=== PATIENT | male | born 1950 | race Two or more races ===

== ENCOUNTER 2017-06-01 14:54 | Inpatient (IN) | payer MEDICARE, OTHER ==
[~2017-06-01] VITALS: Ht 175.3 cm; Wt 74.8 kg
[2017-06-01 14:57] VITALS: BP 123/84
[2017-06-01] MEDS ORDERED: Sodium Chloride 500ML 500 ML IV ONE (15:02)
--- NOTE | 2017-06-01 15:14 | Emergency Room Report ---
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 Unknown regarding complaints of chest pain Unknown regarding rash Unknown regarding recent fever Allergies: Coded Allergies: EGG (Verified Allergy, Unknown, 06/01/17) SOYBEAN (Verified Allergy, Unknown, 06/01/17) Shrimp (Verified Allergy, Unknown, 06/01/17) Patient History Limited by: medical condition Past Medical History: see triage record Pertinent Family History: unable to obtain Reviewed Nursing Documentation: PMH: Agreed; PSxH: Agreed Nursing Documentation-PMH Past Medical History: No History, Except For Hx Hypertension: Yes History Of Psychiatric Problem: Yes - alzheimers Hx Cerebrovascular Accident: Yes Review of Systems All Other Systems: limited - Other than the ones mentioned in the history of present illness all others are reviewed however they do stay limited due to the patient's mental status Physical Exam Vital Signs Date Time Temp Pulse Resp B/P (MAP) Pulse Ox O2 Delivery O2 Flow Rate FiO2 06/01/17 14:47 98.8 102 24 121/82 93 Nasal Cannula 2.0 98.8 Sp02 EP Interpretation: reviewed, normal General Appearance: mild distress - Appears uncomfortable Head: normocephalic, atraumatic Eyes: bilateral eye PERRL, bilateral eye EOMI ENT: dry mucus membranes Neck: supple Respiratory: lungs clear, normal breath sounds Cardiovascular #1: no edema, no JVD, tachycardia Gastrointestinal: non tender, soft Genitourinary: no CVA tenderness Musculoskeletal: other - Patient has left-sided deficit Neurologic: responsive - To verbal stimuli however not verbal Skin: normal color, no rash Lymphatic: no adenopathy Medical Decision Making Diagnostic Impression: Primary Impression: Nausea, vomiting, and diarrhea Additional Impression: Dehydration ER Course Patient is complex with multiple differentials considered Including extensive blood work and acute intervention Patient remains nauseated Have further medication provided Blood work at this time is appropriate and patient requires further inpatient care Labs Test 06/01/17 15:17 06/01/17 16:20 06/02/17 05:20 White Blood Count 12.0 K/UL (4.8-10.8) 12.9 K/UL (4.8-10.8) Red Blood Count 4.94 M/UL (4.70-6.10) 4.57 M/UL (4.70-6.10) Hemoglobin 14.4 G/DL (14.2-18.0) 13.4 G/DL (14.2-18.0) Hematocrit 42.2 % (42.0-52.0) 39.4 % (42.0-52.0) Mean Corpuscular Volume 85 FL (80-99) 86 FL (80-99) Mean Corpuscular Hemoglobin 29.2 PG (27.0-31.0) 29.3 PG (27.0-31.0) Mean Corpuscular Hemoglobin Concent 34.2 G/DL (32.0-36.0) 34.1 G/DL (32.0-36.0) Red Cell Distribution Width 13.3 % (11.6-14.8) 13.5 % (11.6-14.8) Platelet Count 143 K/UL (150-450) 131 K/UL (150-450) Mean Platelet Volume 8.8 FL (6.5-10.1) 9.3 FL (6.5-10.1) Neutrophils (%) (Auto) % (45.0-75.0) 78.6 % (45.0-75.0) Lymphocytes (%) (Auto) % (20.0-45.0) 14.4 % (20.0-45.0) Monocytes (%) (Auto) % (1.0-10.0) 5.6 % (1.0-10.0) Eosinophils (%) (Auto) % (0.0-3.0) 1.1 % (0.0-3.0) Basophils (%) (Auto) % (0.0-2.0) 0.4 % (0.0-2.0) Differential Total Cells Counted 100 Neutrophils % (Manual) 83 % (45-75) Lymphocytes % (Manual) 9 % (20-45) Monocytes % (Manual) 5 % (1-10) Eosinophils % (Manual) 0 % (0-3) Basophils % (Manual) 0 % (0-2) Band Neutrophils 3 % (0-8) Platelet Estimate Decreased Platelet Morphology Normal Red Blood Cell Morphology Normal Sodium Level 141 MMOL/L (136-145) 143 MMOL/L (136-145) Potassium Level 3.4 MMOL/L (3.5-5.1) 3.5 MMOL/L (3.5-5.1) Chloride Level 107 MMOL/L (98-107) 106 MMOL/L (98-107) Carbon Dioxide Level 25 MMOL/L (21-32) 29 MMOL/L (21-32) Anion Gap 9 mmol/L (5-15) 8 mmol/L (5-15) Blood Urea Nitrogen 20 mg/dL (7-18) 21 mg/dL (7-18) Creatinine 1.1 MG/DL (0.55-1.30) 1.1 MG/DL (0.55-1.30) Estimat Glomerular Filtration Rate > 60 mL/min (>60) > 60 mL/min (>60) Glucose Level 110 MG/DL (74-106) 83 MG/DL (74-106) Calcium Level 9.1 MG/DL (8.5-10.1) 8.5 MG/DL (8.5-10.1) Total Bilirubin 1.1 MG/DL (0.2-1.0) 1.2 MG/DL (0.2-1.0) Direct Bilirubin 0.2 MG/DL (0.0-0.3) 0.3 MG/DL (0.0-0.3) Aspartate Amino Transf (AST/SGOT) 14 U/L (15-37) 11 U/L (15-37) Alanine Aminotransferase (ALT/SGPT) 23 U/L (12-78) 19 U/L (12-78) Alkaline Phosphatase 91 U/L (46-116) 77 U/L (46-116) Total Creatine Kinase 15 U/L (26-308) Creatine Kinase MB < 0.5 NG/ML (0.0-3.6) Creatine Kinase MB Relative Index 3.3 Troponin I 0.000 ng/mL (0.000-0.056) Total Protein 6.9 G/DL (6.4-8.2) 6.4 G/DL (6.4-8.2) Albumin 3.4 G/DL (3.4-5.0) 3.0 G/DL (3.4-5.0) Globulin 3.5 g/dL 3.4 g/dL Albumin/Globulin Ratio 1.0 (1.0-2.7) 0.9 (1.0-2.7) Triglycerides Level 133 MG/DL (30-150) Cholesterol Level 121 MG/DL (< 200) LDL Cholesterol 73 mg/dL (<100) HDL Cholesterol 30 MG/DL (40-60) Cholesterol/HDL Ratio 4.0 (3.3-4.4) Urine Color Yellow Urine Appearance Clear Urine pH 5 (4.5-8.0) Urine Specific [place] 1.015 (1.005-1.035) Urine Protein Negative (NEGATIVE) Urine Glucose (UA) Negative (NEGATIVE) Urine Ketones Negative (NEGATIVE) Urine Occult Blood Negative (NEGATIVE) Urine Nitrite Negative (NEGATIVE) Urine Bilirubin Negative (NEGATIVE) Urine Urobilinogen Normal MG/DL (0.0-1.0) Urine Leukocyte Esterase Negative (NEGATIVE) Activated Partial Thromboplast Time 34 SEC (23-33) Amylase Level 58 U/L (25-115) Lipase 80 U/L (73-393) Rhythm Strip Diag. Results EP Interpretation: yes Rate: 78 Rhythm: NSR, no PVC's, no ectopy Chest X-Ray Diagnostic Results Chest X-Ray Diagnostic Results : Chest X-Ray Ordered: Yes # of Views/Limited/Complete: 1 View Indication: Chest Pain EP Interpretation: Yes Interpretation: no consolidation, no effusion, no pneumothorax Impression: No acute disease Electronically Signed by: Garry Serrano DO Other X-Ray Diagnostic Results Other X-Ray Diagnostic Results : X-Ray ordered: KUB # of Views/Limited Vs Complete: 1 View Indication: Pain EP Interpretation: Yes Interpretation: no soft tissue swelling, nonspecific bowel gas, no sbo Impression: No acute disease Electronically Signed by: Garry Serrano DO Last Vital Signs Date Time Temp Pulse Resp B/P (MAP) Pulse Ox O2 Delivery O2 Flow Rate FiO2 06/01/17 14:47 98.8 102 24 121/82 93 Nasal Cannula 2.0 98.8 Status: improved Disposition: ADMITTED INPATIENT Condition: Serious Garry Serrano DO Jun 01, 2017 15:14
[2017-06-01] MEDS ORDERED: ACETAMINOPHEN325 M1 ORAL (15:19)
[2017-06-01] MEDS ORDERED: DOCUSATE SODIU100 MG ORAL (15:19)
[2017-06-01] MEDS ORDERED: ARICEPT10 MG ORAL (15:19)
[2017-06-01] MEDS ORDERED: MIRTAZAPINE15 MG ORAL (15:19)
[2017-06-01] MEDS ORDERED: TRAZODONE HCL150 MG ORAL (15:19)
[2017-06-01] MEDS ORDERED: LIPITOR10 MG ORAL (15:19)
[2017-06-01] MEDS ORDERED: LISINOPRIL20 MG ORAL (15:19)
[2017-06-01 15:59] LABS: HEMATOCRIT 42.2 % (42.0-52.0); HEMOGLOBIN 14.4 G/DL (14.2-18.0); MEAN CORPUSCULAR VOLUME 85 FL (80-99); PLATELET COUNT 143 K/UL (150-450); RED BLOOD COUNT 4.94 M/UL (4.70-6.10); RED CELL DISTRIBUTION WIDTH 13.3 % (11.6-14.8)
[2017-06-01 16:05] LABS: ANION GAP 9 mmol/L (5-15); BLOOD UREA NITROGEN 20 mg/dL (7-18); CALCIUM 9.1 MG/DL (8.5-10.1); CARBON DIOXIDE 25 MMOL/L (21-32); CHLORIDE 107 MMOL/L (98-107); CREATININE 1.1 MG/DL (0.55-1.30); POTASSIUM 3.4 MMOL/L (3.5-5.1); SODIUM 141 MMOL/L (136-145)
[2017-06-01 16:18] LABS: ALANINE AMINOTRANSFERASE 23 U/L (12-78); ALBUMIN 3.4 G/DL (3.4-5.0); ALKALINE PHOSPHATASE 91 U/L (46-116); ASPARTATE AMINO TRANSFERASE 14 U/L (15-37); BILIRUBIN,TOTAL 1.1 MG/DL (0.2-1.0); CHOLESTEROL 121 MG/DL (< 200); CKMB < 0.5 NG/ML (0.0-3.6); CREATINE KINASE 15 U/L (26-308); HDL CHOLESTEROL 30 MG/DL (40-60); TRIGLYCERIDES 133 MG/DL (30-150)
[2017-06-01 16:19] LABS: BILIRUBIN,DIRECT 0.2 MG/DL (0.0-0.3)
[2017-06-01 16:43] LABS: APPEARANCE,URINE CLEAR; BILIRUBIN, URINE NEGATIVE (NEGATIVE); COLOR,URINE YELLOW; GLUCOSE, URINE (UA) NEGATIVE (NEGATIVE); KETONES,URINE NEGATIVE (NEGATIVE); LEUKOCYTE ESTERASE ,URINE NEGATIVE (NEGATIVE); NITRITE,URINE NEGATIVE (NEGATIVE); PH,URINE 5 (4.5-8.0); PROTEIN,URINE NEGATIVE (NEGATIVE); UROBILINOGEN,URINE NORMAL MG/DL (0.0-1.0)
--- NOTE | 2017-06-01 16:47 | Diagnostic Imaging Report ---
Indication: Chest pain Technique: One view of the chest Comparison: none Findings: No acute infiltrates, effusions, or congestion. Tortuous calcified aorta. Normal heart size. Upper mediastinum unremarkable. Impression: No acute process.
--- NOTE | 2017-06-01 16:49 | Diagnostic Imaging Report ---
Indication: Abdominal pain Technique: Supine view of the abdomen Comparison: none Findings: Considerable stool is seen mildly distending the rectum, mild fecal impaction not excludable. Remainder of the bowel gas pattern is unremarkable. No unusual masses or calcifications Impression: Possible mild rectal fecal impaction. Otherwise no acute process
[2017-06-01 16:50] VITALS: BP 131/75
[2017-06-01] MEDS ORDERED: Mylanta II UD 30ml ORAL PRN (19:30)
[2017-06-01] MEDS ORDERED: LORazepam Inj 2mg/ml 1ml IV PRN (19:30)
[2017-06-01] MEDS ORDERED: Nitroglycerin Subl 0.4mg tab SL PRN (19:30)
[2017-06-01] MEDS ORDERED: Morphine Sulfate 4mg/ml Inj IVP PRN (19:30)
[2017-06-01] MEDS ORDERED: Promethazine/Codeine 5ml UD ORAL PRN (19:30)
[2017-06-01] MEDS ORDERED: Miralax 17gm pkt ORAL PRN (19:30)
[2017-06-01] MEDS ORDERED: Promethazine HCl 12.5 MG in NS 55 ML IV PRN (19:30)
[2017-06-01] MEDS ORDERED: Promethazine HCl 25 MG in D5W 55 ML IV PRN (19:30)
[2017-06-01 20:00] VITALS: BP 104/70
[2017-06-01] MEDS: TraZODone HCl 25 mg tablet ORAL SCH (20:25)
[2017-06-01] MEDS: D5 1/2NS 1,000 ML IV SCH (20:25)
[2017-06-01] MEDS: Heparin 5000 units/ml inj SUBQ SCH (21:00)
[2017-06-02] VITALS (7 sets, daily range): BP systolic 109–141; BP diastolic 69–90
--- NOTE | 2017-06-02 05:00 | Consultation ---
DATE OF CONSULTATION: 06/02/2017 HISTORY OF PRESENT ILLNESS: This is a 66-year-old male patient. He came into the hospital due to persistent nausea but this patient continues to have some confusion, disorganized thought process, and mood lability worsened by the stress of his medical illness that is why his attending physician has requested daily psychiatric consultation for this patient to be seen. He also has a history of altered mental status and pseudodementia, normally on Remeron, Aricept, and trazodone. Seen and assessed the patient at bedside. He has some confusion and disorganized thought process. His cognition has declined below his baseline. MEDICAL PROBLEMS: He has persistent nausea. He also has a history of hyperlipidemia and currently dehydration per chart, urinary tract infection, which is likely cause of his altered mental status. ALLERGIES: He has no known drug allergies. SOCIAL HISTORY: [facility] lives in [facility]. Financially supported by [employer] and Medicare. SUBSTANCE ABUSE HISTORY: Denies drug and alcohol use. PSYCHIATRIC HISTORY: Major depression with psychotic features, rule out pseudodementia. STRENGTHS: He is motivated to get better and he has a place to live. WEAKNESSES: He has minimal support system MENTAL STATUS EXAMINATION: Appearance is disheveled. Attitude irritable and agitated. Affect guarded and restricted. Intellect poor. Mood depressed, anxious. Motor activity, psychomotor agitation. Attention span is poor. Orientation x2. Speech is low volume and slurred. Thought process, disorganized and illogical. No signs of any suicidal or homicidal thoughts. He does have sone paranoia. Insight and logical and judgment is poor. Memory 2/3 recall, so poor short-term. Long-term is intact. DIAGNOSIS: Major depressive disorder with psychotic features, rule out pseudodementia. PLAN: I am going to treat this patient with Remeron 15 mg at bedtime, Aricept 5 mg at bedtime, Ativan 1 mg IV q.4 h. hours p.r.n. anxiety and agitation, trazodone 25 mg at bedtime. A 20 minutes supportive therapy provided. Chart reviewed and discussed staff. The patient seen and assessed in his room. I would like to thank, Dr. Jeremy Cuadra, for this interesting consultation. Tan Scott M.D. DR: Kayla JOB#: [id number] CC:
[2017-06-02 07:35] LABS: BASOPHILS % (AUTO) 0.4 % (0.0-2.0); EOSINOPHILS % (AUTO) 1.1 % (0.0-3.0); HEMATOCRIT 39.4 % (42.0-52.0); HEMOGLOBIN 13.4 G/DL (14.2-18.0); LYMPHOCYTES % (AUTO) 14.4 % (20.0-45.0); MEAN CORPUSCULAR VOLUME 86 FL (80-99); MONOCYTES % (AUTO) 5.6 % (1.0-10.0); NEUTROPHILS % (AUTO) 78.6 % (45.0-75.0); PLATELET COUNT 131 K/UL (150-450); RED BLOOD COUNT 4.57 M/UL (4.70-6.10); RED CELL DISTRIBUTION WIDTH 13.5 % (11.6-14.8); WHITE BLOOD COUNT 12.9 K/UL (4.8-10.8)
[2017-06-02 08:01] LABS: ALANINE AMINOTRANSFERASE 19 U/L (12-78); ALBUMIN/GLOBULIN RATIO 0.9 (1.0-2.7); ALKALINE PHOSPHATASE 77 U/L (46-116); AMYLASE 58 U/L (25-115); ANION GAP 8 mmol/L (5-15); ASPARTATE AMINO TRANSFERASE 11 U/L (15-37); BILIRUBIN,TOTAL 1.2 MG/DL (0.2-1.0); BLOOD UREA NITROGEN 21 mg/dL (7-18); CALCIUM 8.5 MG/DL (8.5-10.1); CARBON DIOXIDE 29 MMOL/L (21-32); CHLORIDE 106 MMOL/L (98-107); CREATININE 1.1 MG/DL (0.55-1.30); POTASSIUM 3.5 MMOL/L (3.5-5.1); SODIUM 143 MMOL/L (136-145)
[2017-06-02 08:02] LABS: BILIRUBIN,DIRECT 0.3 MG/DL (0.0-0.3)
[2017-06-02] MEDS: Lisinopril 20mg tab ORAL SCH (08:33)
[2017-06-02] MEDS: Pantoprazole Inj IV SCH (08:33)
[2017-06-02] MEDS: Heparin 5000 units/ml inj SUBQ SCH ×2 (08:34→21:00)
[2017-06-02] MEDS: D5 1/2NS 1,000 ML IV SCH ×2 (08:41→22:06)
[2017-06-02] MEDS ORDERED: D5 1/2NS 1000ml IV ONE (09:22)
--- NOTE | 2017-06-02 13:43 | Cardiology Report ---
APPROVED REPORT EKG Measurement Heart [id number] Sinus tachycardia Nonspecific T wave abnormality Abnormal ECG
--- NOTE | 2017-06-02 14:52 | Consultation ---
History of Present Illness General Date patient seen: Jun 02, 2017 Chief Complaint: Nausea, Vomiting, and Diarrhea Reason for Consultation: desaturation Present Illness HPI 66 year old male with hx of HTN, CVA, [facility] resident presents with several episodes of vomiting and diarrhea Patient himself is nonverbal history is obtained from paramedics along with [facility] report. Apparently he had an episode of desaturation as well. Pt looks chronically ill, slightly cachectic but comfortable. Allergies: Coded Allergies: EGG (Verified Allergy, Unknown, 06/01/17) SOYBEAN (Verified Allergy, Unknown, 06/01/17) Shrimp (Verified Allergy, Unknown, 06/01/17) Medication History Scheduled Atorvastatin Calcium* (Lipitor*), 10 MG ORAL BEDTIME, (Reported) Docusate Sodium* (Docusate Sodium*), 100 MG ORAL TWICE A DAY, (Reported) Donepezil Hcl* (Aricept*), 10 MG ORAL DAILY, (Reported) Lisinopril (Lisinopril*), 20 MG ORAL DAILY, (Reported) Mirtazapine* (Remeron*), 15 MG ORAL BEDTIME, (Reported) Trazodone* (Trazodone*), 25 MG ORAL BEDTIME, (Reported) Scheduled PRN Acetaminophen* (Acetaminophen 325MG Tablet*), 650 MG ORAL Q4H PRN for For Pain, (Reported) Patient History Healthcare decision maker Resuscitation status Advanced Directive on File Yes Past Medical/Surgical History Past Medical/Surgical History: (1) Cerebrovascular accident (CVA) (2) HTN (hypertension) (3) half-way resident Review of Systems All Other Systems: negative except mentioned in HPI Physical Exam General Appearance: cachetic Lines, tubes and drains: peripheral HEENT: normocephalic, atraumatic Neck: non-tender, normal alignment, supple Respiratory/Chest: chest wall non-tender, lungs clear Breasts: no masses Cardiovascular/Chest: normal peripheral pulses Abdomen: normal bowel sounds, non tender Genitourinary/Rectal: normal genital exam, normal rectal exam Extremities: normal range of motion, non-tender Skin Exam: normal pigmentation Neurologic: food vendor II-XII grossly normal Last 24 Hour Vital Signs Date Time Temp Pulse Resp B/P (MAP) Pulse Ox O2 Delivery O2 Flow Rate FiO2 06/02/17 12:00 97.2 59 20 122/69 90 97.2 06/02/17 08:33 118/69 06/02/17 08:00 97.0 95 17 118/69 95 Nasal Cannula 2.0 97.0 06/02/17 04:00 Nasal Cannula 2.0 06/02/17 04:00 97.3 63 14 128/77 97 97.3 06/02/17 00:00 98.0 77 15 109/72 93 98.0 06/02/17 00:00 Nasal Cannula 2.0 06/01/17 20:00 98.1 80 15 104/70 91 98.1 06/01/17 20:00 94 Nasal Cannula 2.0 06/01/17 18:06 98.5 100 22 127/80 94 Nasal Cannula 2.0 98.4 06/01/17 16:50 98.4 102 24 131/75 94 Nasal Cannula 2.0 98.4 06/01/17 14:57 98.0 101 25 123/84 93 Nasal Cannula 2.0 98.0 Intake and Output 06/01/17 06/02/17 19:00 07:00 Intake Total 500 ml 720 ml Output Total 100 ml Balance 400 ml 720 ml Intake IV Total 500 ml 720 ml Output Urine Total 100 ml # Voids 1 2 Laboratory Tests Test 06/01/17 15:17 06/01/17 16:20 06/02/17 05:20 White Blood Count 12.0 K/UL (4.8-10.8) H 12.9 K/UL (4.8-10.8) H Red Blood Count 4.94 M/UL (4.70-6.10) 4.57 M/UL (4.70-6.10) L Hemoglobin 14.4 G/DL (14.2-18.0) 13.4 G/DL (14.2-18.0) L Hematocrit 42.2 % (42.0-52.0) 39.4 % (42.0-52.0) L Mean Corpuscular Volume 85 FL (80-99) 86 FL (80-99) Mean Corpuscular Hemoglobin 29.2 PG (27.0-31.0) 29.3 PG (27.0-31.0) Mean Corpuscular Hemoglobin Concent 34.2 G/DL (32.0-36.0) 34.1 G/DL (32.0-36.0) Red Cell Distribution Width 13.3 % (11.6-14.8) 13.5 % (11.6-14.8) Platelet Count 143 K/UL (150-450) L 131 K/UL (150-450) L Mean Platelet Volume 8.8 FL (6.5-10.1) 9.3 FL (6.5-10.1) Neutrophils (%) (Auto) % (45.0-75.0) 78.6 % (45.0-75.0) H Lymphocytes (%) (Auto) % (20.0-45.0) 14.4 % (20.0-45.0) L Monocytes (%) (Auto) % (1.0-10.0) 5.6 % (1.0-10.0) Eosinophils (%) (Auto) % (0.0-3.0) 1.1 % (0.0-3.0) Basophils (%) (Auto) % (0.0-2.0) 0.4 % (0.0-2.0) Differential Total Cells Counted 100 Neutrophils % (Manual) 83 % (45-75) H Lymphocytes % (Manual) 9 % (20-45) L Monocytes % (Manual) 5 % (1-10) Eosinophils % (Manual) 0 % (0-3) Basophils % (Manual) 0 % (0-2) Band Neutrophils 3 % (0-8) Platelet Estimate Decreased L Platelet Morphology Normal Red Blood Cell Morphology Normal Sodium Level 141 MMOL/L (136-145) 143 MMOL/L (136-145) Potassium Level 3.4 MMOL/L (3.5-5.1) L 3.5 MMOL/L (3.5-5.1) Chloride Level 107 MMOL/L (98-107) 106 MMOL/L (98-107) Carbon Dioxide Level 25 MMOL/L (21-32) 29 MMOL/L (21-32) Anion Gap 9 mmol/L (5-15) 8 mmol/L (5-15) Blood Urea Nitrogen 20 mg/dL (7-18) H 21 mg/dL (7-18) H Creatinine 1.1 MG/DL (0.55-1.30) 1.1 MG/DL (0.55-1.30) Estimat Glomerular Filtration Rate > 60 mL/min (>60) > 60 mL/min (>60) Glucose Level 110 MG/DL (74-106) H 83 MG/DL (74-106) Calcium Level 9.1 MG/DL (8.5-10.1) 8.5 MG/DL (8.5-10.1) Total Bilirubin 1.1 MG/DL (0.2-1.0) H 1.2 MG/DL (0.2-1.0) H Direct Bilirubin 0.2 MG/DL (0.0-0.3) 0.3 MG/DL (0.0-0.3) Aspartate Amino Transf (AST/SGOT) 14 U/L (15-37) L 11 U/L (15-37) L Alanine Aminotransferase (ALT/SGPT) 23 U/L (12-78) 19 U/L (12-78) Alkaline Phosphatase 91 U/L (46-116) 77 U/L (46-116) Total Creatine Kinase 15 U/L (26-308) L Creatine Kinase MB < 0.5 NG/ML (0.0-3.6) Creatine Kinase MB Relative Index 3.3 Troponin I 0.000 ng/mL (0.000-0.056) Total Protein 6.9 G/DL (6.4-8.2) 6.4 G/DL (6.4-8.2) Albumin 3.4 G/DL (3.4-5.0) 3.0 G/DL (3.4-5.0) L Globulin 3.5 g/dL 3.4 g/dL Albumin/Globulin Ratio 1.0 (1.0-2.7) 0.9 (1.0-2.7) L Triglycerides Level 133 MG/DL (30-150) Cholesterol Level 121 MG/DL (< 200) LDL Cholesterol 73 mg/dL (<100) HDL Cholesterol 30 MG/DL (40-60) L Cholesterol/HDL Ratio 4.0 (3.3-4.4) Urine Color Yellow Urine Appearance Clear Urine pH 5 (4.5-8.0) Urine Specific [place] 1.015 (1.005-1.035) Urine Protein Negative (NEGATIVE) Urine Glucose (UA) Negative (NEGATIVE) Urine Ketones Negative (NEGATIVE) Urine Occult Blood Negative (NEGATIVE) Urine Nitrite Negative (NEGATIVE) Urine Bilirubin Negative (NEGATIVE) Urine Urobilinogen Normal MG/DL (0.0-1.0) Urine Leukocyte Esterase Negative (NEGATIVE) Activated Partial Thromboplast Time 34 SEC (23-33) H Amylase Level 58 U/L (25-115) Lipase 80 U/L (73-393) Height (Feet): 5 Height (Inches): 9.00 Weight (Pounds): 165 Medications Current Medications Medications (Trade) Dose Ordered Sig/Dandy Route PRN Reason Start Time Stop Time Status Last Admin Dose Admin Acetaminophen (Tylenol) 650 mg Q4H PRN ORAL fever 06/01/17 19:30 07/01/17 19:29 Al Hydroxide/Mg Hydroxide (Mylanta II) 30 ml Q6H PRN ORAL dyspepsia 06/01/17 19:30 07/01/17 19:29 Atorvastatin Calcium (Lipitor) 10 mg BEDTIME ORAL 06/01/17 21:00 07/01/17 20:59 06/01/17 20:25 Dextrose (Dextrose 50%) 25 ml STAT PRN IV BS 60-69mg/dl 06/01/17 20:15 07/01/17 20:14 Dextrose (Dextrose 50%) 50 ml STAT PRN IV BS less than 60mg/dl 06/01/17 19:30 07/01/17 19:29 Dextrose/Sodium Chloride 1,000 ml @ 75 mls/hr [id number] IV 06/01/17 19:26 07/01/17 19:25 06/02/17 08:41 Diphenhydramine HCl (Benadryl) 25 mg Q6H PRN ORAL Itching/Pruritis 06/01/17 19:30 07/01/17 19:29 Donepezil HCl (Aricept) 5 mg QHS ORAL 06/02/17 21:00 07/02/17 20:59 Heparin Sodium (Porcine) (Heparin 5000 units/ml) 5,000 units EVERY 12 HOURS SUBQ 06/01/17 21:00 07/01/17 20:59 Lisinopril (Prinivil) 20 mg DAILY ORAL 06/02/17 09:00 07/02/17 08:59 06/02/17 08:33 Lorazepam (Ativan 2mg/ml 1ml) 1 mg EVERY 4 HOURS PRN IV agitation 06/01/17 19:30 06/08/17 19:29 Mirtazapine (Remeron) 15 mg BEDTIME ORAL 06/02/17 21:00 07/02/17 20:59 Morphine Sulfate (Morphine Sulfate) 2 mg EVERY 4 HOURS PRN IVP severe Pain (Pain Scale 7-10) 06/01/17 19:30 06/08/17 19:29 Nitroglycerin (Ntg) 0.4 mg Q5M X 3 DOSES PRN SL Prn Chest Pain 06/01/17 19:30 07/01/17 19:29 Ondansetron HCl (Zofran) 4 mg Q6H PRN IVP Nausea & Vomiting 06/01/17 19:30 07/01/17 19:29 Pantoprazole (Protonix) 40 mg DAILY IV 06/02/17 09:00 07/02/17 08:59 06/02/17 08:33 Polyethylene Glycol (Miralax) 17 gm HSPRN PRN ORAL Constipation 06/01/17 19:30 07/01/17 19:29 Promethazine HCl 25 mg/Dextrose 56 ml @ 110 mls/hr Q6H PRN IV Refractory N/V 06/01/17 19:30 07/01/17 19:29 Promethazine HCl/ Codeine (Phenergan with Codeine) 5 ml Q4H PRN ORAL For Cough 06/01/17 19:30 07/01/17 19:29 Temazepam (Restoril) 15 mg HSPRN PRN ORAL Insomnia 06/01/17 19:30 06/08/17 19:29 Trazodone HCl (Desyrel) 25 mg BEDTIME ORAL 06/01/17 21:00 07/01/17 20:59 06/01/17 20:25 Assessment/Plan Problem List: (1) Hypoxemia ICD Codes: R09.02 - Hypoxemia SNOMED: 214417185 (2) At high risk for aspiration ICD Codes: Z91.89 - Other specified personal risk factors, not elsewhere classified SNOMED: 986691602 (3) Nausea, vomiting, and diarrhea ICD Codes: R11.2 - Nausea with vomiting, unspecified; R19.7 - Diarrhea, unspecified SNOMED: 0218717 (4) half-way resident ICD Codes: Z59.3 - Problems related to living in residential institution SNOMED: 653171734 (5) HTN (hypertension) ICD Codes: I10 - Essential (primary) hypertension SNOMED: 77557470 (6) Cerebrovascular accident (CVA) ICD Codes: I63.9 - Cerebral infarction, unspecified SNOMED: 508239438 Assessment/Plan npo IV fluids abdominal studies swallow evaluation check electrolytes dvt prophylaxis. Rosio Prince MD Jun 02, 2017 14:52
--- NOTE | 2017-06-02 16:52 | GI Initial Consult Note ---
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 Pt seen on floor, awake alert NAD with no active s/sx of N/V/D. Unable to obtain any history from patient, son at bedside. Labs reviewed shows mild leukocytosis, KUB shows possible fecal impaction. Unknown history of endoscopy / colonoscopy. Home Meds Reported Medications Acetaminophen* (ACETAMINOPHEN 325MG TABLET*) 325 Mg Tablet, 650 MG ORAL Q4H PRN for For Pain, TAB 06/01/17 Atorvastatin Calcium* (LIPITOR*) 10 Mg Tablet, 10 MG ORAL BEDTIME, TAB 06/01/17 Donepezil Hcl* (ARICEPT*) 10 Mg Tablet, 10 MG ORAL DAILY, TAB 06/01/17 Lisinopril (LISINOPRIL*) 20 Mg Tablet, 20 MG ORAL DAILY, TAB 06/01/17 Docusate Sodium* (DOCUSATE SODIUM*) 100 Mg Capsule, 100 MG ORAL TWICE A DAY, CAP 06/01/17 Mirtazapine* (REMERON*) 15 Mg Tablet, 15 MG ORAL BEDTIME, TAB 06/01/17 Trazodone* (TRAZODONE*) 150 Mg Tablet, 25 MG ORAL BEDTIME, TAB 06/01/17 Med list reviewed/reconciled: Yes Allergies: Coded Allergies: EGG (Verified Allergy, Unknown, 06/01/17) SOYBEAN (Verified Allergy, Unknown, 06/01/17) Shrimp (Verified Allergy, Unknown, 06/01/17) Patient History Limited by: medical condition History Provided By: Medical Record PMH Narrative Limited by: medical condition Past Medical History: see triage record Pertinent Family History: unable to obtain Reviewed Nursing Documentation: PMH: Agreed; PSxH: Agreed Nursing Documentation-PMH Past Medical History: No History, Except For Hx Hypertension: Yes History Of Psychiatric Problem: Yes - Alzheimer Hx Cerebrovascular Accident: Yes Social History: Denies: smoking, alcohol use, drug use, other Review of Systems All Other Systems: limited Physical Exam Vital Signs Date Time Temp Pulse Resp B/P (MAP) Pulse Ox O2 Delivery O2 Flow Rate FiO2 06/01/17 14:47 98.8 102 24 121/82 93 Nasal Cannula 2.0 98.8 Sp02 EP Interpretation: reviewed, normal Labs Laboratory Tests Test 06/02/17 05:20 White Blood Count 12.9 K/UL (4.8-10.8) H Red Blood Count 4.57 M/UL (4.70-6.10) L Hemoglobin 13.4 G/DL (14.2-18.0) L Hematocrit 39.4 % (42.0-52.0) L Mean Corpuscular Volume 86 FL (80-99) Mean Corpuscular Hemoglobin 29.3 PG (27.0-31.0) Mean Corpuscular Hemoglobin Concent 34.1 G/DL (32.0-36.0) Red Cell Distribution Width 13.5 % (11.6-14.8) Platelet Count 131 K/UL (150-450) L Mean Platelet Volume 9.3 FL (6.5-10.1) Neutrophils (%) (Auto) 78.6 % (45.0-75.0) H Lymphocytes (%) (Auto) 14.4 % (20.0-45.0) L Monocytes (%) (Auto) 5.6 % (1.0-10.0) Eosinophils (%) (Auto) 1.1 % (0.0-3.0) Basophils (%) (Auto) 0.4 % (0.0-2.0) Activated Partial Thromboplast Time 34 SEC (23-33) H Sodium Level 143 MMOL/L (136-145) Potassium Level 3.5 MMOL/L (3.5-5.1) Chloride Level 106 MMOL/L (98-107) Carbon Dioxide Level 29 MMOL/L (21-32) Anion Gap 8 mmol/L (5-15) Blood Urea Nitrogen 21 mg/dL (7-18) H Creatinine 1.1 MG/DL (0.55-1.30) Estimat Glomerular Filtration Rate > 60 mL/min (>60) Glucose Level 83 MG/DL (74-106) Calcium Level 8.5 MG/DL (8.5-10.1) Total Bilirubin 1.2 MG/DL (0.2-1.0) H Direct Bilirubin 0.3 MG/DL (0.0-0.3) Aspartate Amino Transf (AST/SGOT) 11 U/L (15-37) L Alanine Aminotransferase (ALT/SGPT) 19 U/L (12-78) Alkaline Phosphatase 77 U/L (46-116) Total Protein 6.4 G/DL (6.4-8.2) Albumin 3.0 G/DL (3.4-5.0) L Globulin 3.4 g/dL Albumin/Globulin Ratio 0.9 (1.0-2.7) L Amylase Level 58 U/L (25-115) Lipase 80 U/L (73-393) General Appearance: well appearing, no apparent distress, alert Head: normocephalic EENT: PERRL/EOMI, normal ENT inspection Neck: supple Respiratory: normal breath sounds, no respiratory distress Cardiovascular: normal rate Gastrointestinal: normal inspection, non tender, soft, normal bowel sounds, non -distended Rectal: deferred Genitourinary: deferred Musculoskeletal: normal inspection, back normal Neurologic: alert, responsive Skin: normal inspection, normal color, no rash, warm/dry, palpation normal, well hydrated Lymphatic: normal inspection, no adenopathy Current Medications Current Medications Medications (Trade) Dose Ordered Sig/Dandy Route PRN Reason Start Time Stop Time Status Last Admin Dose Admin Acetaminophen (Tylenol) 650 mg Q4H PRN ORAL fever 06/01/17 19:30 07/01/17 19:29 Al Hydroxide/Mg Hydroxide (Mylanta II) 30 ml Q6H PRN ORAL dyspepsia 06/01/17 19:30 07/01/17 19:29 Atorvastatin Calcium (Lipitor) 10 mg BEDTIME ORAL 06/01/17 21:00 07/01/17 20:59 06/01/17 20:25 Dextrose (Dextrose 50%) 25 ml STAT PRN IV BS 60-69mg/dl 06/01/17 20:15 07/01/17 20:14 Dextrose (Dextrose 50%) 50 ml STAT PRN IV BS less than 60mg/dl 06/01/17 19:30 07/01/17 19:29 Dextrose/Sodium Chloride 1,000 ml @ 75 mls/hr [id number] IV 06/01/17 19:26 07/01/17 19:25 06/02/17 08:41 Diphenhydramine HCl (Benadryl) 25 mg Q6H PRN ORAL Itching/Pruritis 06/01/17 19:30 07/01/17 19:29 Donepezil HCl (Aricept) 5 mg QHS ORAL 06/02/17 21:00 07/02/17 20:59 Heparin Sodium (Porcine) (Heparin 5000 units/ml) 5,000 units EVERY 12 HOURS SUBQ 06/01/17 21:00 07/01/17 20:59 Lisinopril (Prinivil) 20 mg DAILY ORAL 06/02/17 09:00 07/02/17 08:59 06/02/17 08:33 Lorazepam (Ativan 2mg/ml 1ml) 1 mg EVERY 4 HOURS PRN IV agitation 06/01/17 19:30 06/08/17 19:29 06/02/17 14:50 Mirtazapine (Remeron) 15 mg BEDTIME ORAL 06/02/17 21:00 07/02/17 20:59 Morphine Sulfate (Morphine Sulfate) 2 mg EVERY 4 HOURS PRN IVP severe Pain (Pain Scale 7-10) 06/01/17 19:30 06/08/17 19:29 Nitroglycerin (Ntg) 0.4 mg Q5M X 3 DOSES PRN SL Prn Chest Pain 06/01/17 19:30 07/01/17 19:29 Ondansetron HCl (Zofran) 4 mg Q6H PRN IVP Nausea & Vomiting 06/01/17 19:30 07/01/17 19:29 Pantoprazole (Protonix) 40 mg DAILY IV 06/02/17 09:00 07/02/17 08:59 06/02/17 08:33 Polyethylene Glycol (Miralax) 17 gm HSPRN PRN ORAL Constipation 06/01/17 19:30 07/01/17 19:29 Promethazine HCl 25 mg/Dextrose 56 ml @ 110 mls/hr Q6H PRN IV Refractory N/V 06/01/17 19:30 07/01/17 19:29 Promethazine HCl/ Codeine (Phenergan with Codeine) 5 ml Q4H PRN ORAL For Cough 06/01/17 19:30 07/01/17 19:29 Temazepam (Restoril) 15 mg HSPRN PRN ORAL Insomnia 06/01/17 19:30 06/08/17 19:29 Trazodone HCl (Desyrel) 25 mg BEDTIME ORAL 06/01/17 21:00 07/01/17 20:59 06/01/17 20:25 GI: Plan Problems: (1) Nausea, vomiting, and diarrhea (2) At high risk for aspiration (3) Fecal impaction in rectum (4) Malnutrition (5) Dysphagia as late effect of cerebrovascular accident (CVA) Plan KUB reviewed >> possible fecal impaction fleets oil PO & enema x 1, will perform disimpaction if not successful bowel regime >> colace + miralax ST evaluation given history of CVA strict aspiration precautions ok to adv diet ppi zofran prn, reglan for persistent vomiting prn transfusions electrolyte correction fu labs Discussed with Dr. Summers. Thank you for this patient referral, we will follow. Geovanna Guzman N.P. Jun 02, 2017 16:52
[2017-06-02] MEDS ORDERED: Fleet's Mineral Oil Enema RECTAL ONE (17:00)
--- NOTE | 2017-06-02 17:00 | History and Physical Report ---
DATE OF ADMISSION: 06/01/2017 TIME SEEN: 2 p.m. CONSULTANTS: 1. Trevor Summers M.D. 2. Rosio Prince M.D. 3. Tan Scott M.D. CHIEF COMPLAINT: Persistent nausea and vomiting. BRIEF HISTORY: This is a 66-year-old male from [facility] presented with the above-mentioned diagnoses for two days and the patient came in and diagnosed with the above, slight hypoxic and went to medical floor for further treatment. Currently, calm in bed, slight nausea and vomiting, no complaint otherwise, not responding to questions. REVIEW OF SYSTEMS: Unavailable. PAST MEDICAL HISTORY: Include hypertension and possible encephalopathy. PAST SURGICAL HISTORY: Unknown MEDICATIONS: Include Remeron, Aricept, Prinivil, Protonix, Lipitor, trazodone, heparin, dextrose, Tylenol, morphine, Zofran, Restoril, Benadryl, nitroglycerin, lorazepam, promethazine. ALLERGIES: Denies. SOCIAL HISTORY: Per patient, positive smoking. No alcohol. No intravenous drug abuse. FAMILY HISTORY: Noncontributory. PHYSICAL EXAMINATION: GENERAL: Calm in bed, oriented x1, in no acute distress. VITAL SIGNS: Temperature is 97, pulse 95, respiratory rate 17, blood pressure 118/69. CARDIOVASCULAR: No murmur. LUNGS: Distant and clear. ABDOMEN: Bowel sounds positive. Distended. Soft. No guarding. No rigidity. No rebound. EXTREMITIES: No cyanosis, clubbing, or edema. NEUROLOGIC: The patient moves all extremities. Does not want to follow commands. LABORATORY AND DIAGNOSTIC DATA: White count 12.9, hemoglobin and hematocrit 13/39, platelets 131. BMP show BUN 21, albumin 3.0, otherwise BMP is normal. PTT is 34. Urinalysis is negative. ASSESSMENT: 1. Nausea and vomiting. 2. . 3. Leukocytosis. 4. Hypoxic. 5. Hypercholesterol. PLAN: 1. Continue premeds. 2. OT/PT. 3. Dietary followup. 4. O2 and pulmonary treatment as needed. 5. Blood pressure control. 6. Pain control. 7. Zofran as needed. 8. Dietary followup. 9. Dr. Summers, Dr. Prince, Dr. Scott to consult. 10. CBC and BMP in the morning. Jeremy Cuadra D.O. DR: Maximo JOB#: [id number] CC:
[2017-06-02] MEDS ORDERED: Fleet's Mineral Oil Enema RECTAL SCH (17:15)
[2017-06-02] MEDS ORDERED: LORazepam 1mg tab ORAL PRN (17:15)
[2017-06-02] MEDS ORDERED: Mineral Oil 30ml ud ORAL SCH (20:00)
[2017-06-02] MEDS: Donepezil 5mg Tab ORAL SCH (21:01)
[2017-06-02] MEDS: Miralax 17gm pkt ORAL SCH (21:01)
[2017-06-02] MEDS: TraZODone HCl 25 mg tablet ORAL SCH (21:02)
[2017-06-03 04:00] VITALS: BP 156/66
[2017-06-03 08:00] VITALS: BP 123/78
[2017-06-03] MEDS: Pantoprazole Inj IV SCH (09:39)
[2017-06-03] MEDS: Heparin 5000 units/ml inj SUBQ SCH ×2 (09:40→21:00)
[2017-06-03] MEDS: Lisinopril 20mg tab ORAL SCH (09:43)
[2017-06-03] MEDS: D5 1/2NS 1,000 ML IV SCH (11:37)
[2017-06-03 12:00] VITALS: BP 104/54
--- NOTE | 2017-06-03 13:00 | General Progress Note ---
Assessment/Plan Problem List: (1) Nausea, vomiting, and diarrhea ICD Codes: R11.2 - Nausea with vomiting, unspecified; R19.7 - Diarrhea, unspecified SNOMED: 7955785 (2) HTN (hypertension) ICD Codes: I10 - Essential (primary) hypertension SNOMED: 94555571 (3) Hypoxemia ICD Codes: R09.02 - Hypoxemia SNOMED: 256666468 Status: unchanged Assessment/Plan o2 pulm tx ot pt diet abx prn cbc bmp am gi f/u Subjective Constitutional: Reports: weakness Gastrointestinal/Abdominal: Reports: nausea Allergies: Coded Allergies: EGG (Verified Allergy, Unknown, 06/01/17) SOYBEAN (Verified Allergy, Unknown, 06/01/17) Shrimp (Verified Allergy, Unknown, 06/01/17) All Systems: reviewed and negative except above Subjective sleepy in bed Objective Last 24 Hour Vital Signs Date Time Temp Pulse Resp B/P (MAP) Pulse Ox O2 Delivery O2 Flow Rate FiO2 06/03/17 12:00 97.7 53 16 104/54 96 97.7 06/03/17 09:43 123/78 06/03/17 08:31 60 06/03/17 08:00 96.8 51 20 123/78 97 96.8 06/03/17 04:00 97.9 79 18 156/66 96 97.9 06/02/17 23:56 97.6 69 18 141/90 95 97.6 06/02/17 20:00 97.2 64 18 141/86 92 97.2 06/02/17 16:00 98.2 65 18 136/74 96 98.2 Intake and Output 06/02/17 06/03/17 19:00 07:00 Intake Total 915 ml 250 ml Balance 915 ml 250 ml Intake Oral 240 ml 250 ml IV Total 675 ml # Voids 2 4 # Bowel Movements 2 Height (Feet): 5 Height (Inches): 9.00 Weight (Pounds): 165 General Appearance: lethargic EENT: normal ENT inspection Neck: normal alignment Cardiovascular: normal peripheral pulses, normal rate, regular rhythm Respiratory/Chest: chest wall non-tender, lungs clear, normal breath sounds Abdomen: normal bowel sounds, non tender, soft Extremities: normal inspection Edema: no edema noted Arm (L), no edema noted Arm (R), no edema noted Leg (L), no edema noted Leg (R), no edema noted Pedal (L), no edema noted Pedal (R), no edema noted Generalized Neurologic: motor weakness Skin: normal pigmentation, warm/dry DYLAN HOROWITZ Jun 03, 2017 13:00
--- NOTE | 2017-06-03 13:58 | Diagnostic Imaging Report ---
Indication: Abdominal pain, elevated LFTs Technique: US ABD Complete Comparison: None Findings: Pancreas is not visualized due to overlying bowel gas. Portions of the liver are poorly evaluated due to overlying bowel gas and body habitus. Questionable gallbladder sludge versus artifact. No gallbladder wall thickening or pericholecystic fluid seen. Sonographic Sanches sign was not documented. Hepatic contour appears smooth. Images demonstrate normal parenchymal thickness and echogenicity. A simple appearing cyst is noted at the lower pole the left kidney. No evidence of hydronephrosis bilaterally. Spleen is enlarged. No ascites. IMPRESSION: Exam due to overlying bowel gas, body habitus and (per computer engineering technologist) lack of cooperation with exam positioning. The pancreas, portions of the aorta and liver are not visualized. Within these limitations: * Apparent layering echogenic material in the gallbladder likely artifact. Gallbladder sludge not entirely excluded. No gallbladder wall thickening, abnormal gallbladder distention or pericholecystic fluid seen. Sonographic Sanches sign was not documented. Correlate clinically. * Suboptimal evaluation of the common bile duct. Likely within normal limits however some images suggest dilatation of the common bile duct to 1 cm. * Borderline hepatosplenomegaly. * Simple appearing left renal cyst. Given above limitations of ultrasound, more sensitive evaluation can be obtained with either contrast-enhanced CT or MRI of the abdomen.
--- NOTE | 2017-06-03 14:29 | GI Progress Note ---
Assessment/Plan Problems: (1) Cerebrovascular accident (CVA) ICD Codes: I63.9 - Cerebral infarction, unspecified SNOMED: 754138661 (2) At high risk for aspiration ICD Codes: Z91.89 - Other specified personal risk factors, not elsewhere classified SNOMED: 257764436 (3) Fecal impaction in rectum ICD Codes: K56.41 - Fecal impaction SNOMED: 47745233 (4) Malnutrition ICD Codes: E46 - Unspecified protein-calorie malnutrition SNOMED: 63320099 (5) Dysphagia as late effect of cerebrovascular accident (CVA) ICD Codes: I69.391 - Dysphagia following cerebral infarction SNOMED: 688329089 (6) Dehydration ICD Codes: E86.0 - Dehydration SNOMED: 00287815 (7) Nausea, vomiting, and diarrhea ICD Codes: R11.2 - Nausea with vomiting, unspecified; R19.7 - Diarrhea, unspecified SNOMED: 4190967 Status: stable Status Narrative Discussed with Dr. Summers. Assessment/Plan KUB reviewed >> possible fecal impaction >> had big BM yesterday bowel regime >> colace + miralax ST evaluation given history of CVA strict aspiration precautions ok to adv diet ppi zofran prn, reglan for persistent vomiting prn transfusions electrolyte correction fu labs Subjective Gastrointestinal/Abdominal: Reports: abdominal pain - resolved Objective Last 24 Hour Vital Signs Date Time Temp Pulse Resp B/P (MAP) Pulse Ox O2 Delivery O2 Flow Rate FiO2 06/03/17 12:00 97.7 53 16 104/54 96 97.7 06/03/17 09:43 123/78 06/03/17 08:31 60 06/03/17 08:00 96.8 51 20 123/78 97 96.8 06/03/17 04:00 97.9 79 18 156/66 96 97.9 06/02/17 23:56 97.6 69 18 141/90 95 97.6 06/02/17 20:00 97.2 64 18 141/86 92 97.2 06/02/17 16:00 98.2 65 18 136/74 96 98.2 Intake and Output 06/02/17 06/03/17 19:00 07:00 Intake Total 915 ml 250 ml Balance 915 ml 250 ml Intake Oral 240 ml 250 ml IV Total 675 ml # Voids 2 4 # Bowel Movements 2 Height (Feet): 5 Height (Inches): 9.00 Weight (Pounds): 165 General Appearance: no apparent distress, alert Cardiovascular: normal rate Respiratory/Chest: normal breath sounds, no respiratory distress Abdominal Exam: normal bowel sounds, non tender, soft Extremities: normal range of motion, non-tender Objective Had massive bowel movement last night Geovanna Guzman N.P. Jun 03, 2017 14:29
--- NOTE | 2017-06-03 14:56 | Pulmonology Progress Note ---
Assessment/Plan Problems: (1) Hypoxemia (2) At high risk for aspiration (3) Nausea, vomiting, and diarrhea (4) assisted resident (5) HTN (hypertension) (6) Cerebrovascular accident (CVA) Assessment/Plan aspiration precaution swallow study reviewed symptomatic treatment titrate fio2 to sat of 92% respiratory treatment dvt prophylaxis fall precaution Subjective ROS Limited/Unobtainable: No Constitutional: Reports: no symptoms HEENT: Repors: no symptoms Allergies: Coded Allergies: EGG (Verified Allergy, Unknown, 06/01/17) SOYBEAN (Verified Allergy, Unknown, 06/01/17) Shrimp (Verified Allergy, Unknown, 06/01/17) Objective Last 24 Hour Vital Signs Date Time Temp Pulse Resp B/P (MAP) Pulse Ox O2 Delivery O2 Flow Rate FiO2 06/03/17 12:00 97.7 53 16 104/54 96 97.7 06/03/17 09:43 123/78 06/03/17 08:31 60 06/03/17 08:00 96.8 51 20 123/78 97 96.8 06/03/17 04:00 97.9 79 18 156/66 96 97.9 06/02/17 23:56 97.6 69 18 141/90 95 97.6 06/02/17 20:00 97.2 64 18 141/86 92 97.2 06/02/17 16:00 98.2 65 18 136/74 96 98.2 Intake and Output 06/02/17 06/03/17 19:00 07:00 Intake Total 915 ml 250 ml Balance 915 ml 250 ml Intake Oral 240 ml 250 ml IV Total 675 ml # Voids 2 4 # Bowel Movements 2 General Appearance: cachetic HEENT: normocephalic, atraumatic Respiratory/Chest: chest wall non-tender, crackles/rales Cardiovascular: normal peripheral pulses, normal rate Abdomen: normal bowel sounds, soft, non tender Genitourinary: normal external genitalia Extremities: no cyanosis Neurologic/Psychiatric: bias binding folder II-XII grossly normal Lymphatic: no neck adenopathy, no groin adenopathy Microbiology Date/Time Source Procedure Growth Status 06/01/17 16:25 Nasal Nares MRSA Culture - Final NO METHICILLIN RESISTANT STAPH AUREUS... Complete 06/01/17 16:25 Rectum VRE Culture - Final NO VANCOMYCIN RESISTANT ENTEROCOCCUS ... Complete Current Medications Medications (Trade) Dose Ordered Sig/Dandy Route PRN Reason Start Time Stop Time Status Last Admin Dose Admin Acetaminophen (Tylenol) 650 mg Q4H PRN ORAL fever 06/01/17 19:30 07/01/17 19:29 Al Hydroxide/Mg Hydroxide (Mylanta II) 30 ml Q6H PRN ORAL dyspepsia 06/01/17 19:30 07/01/17 19:29 Atorvastatin Calcium (Lipitor) 10 mg BEDTIME ORAL 06/01/17 21:00 07/01/17 20:59 06/02/17 21:01 Dextrose (Dextrose 50%) 25 ml STAT PRN IV BS 60-69mg/dl 06/01/17 20:15 07/01/17 20:14 Dextrose (Dextrose 50%) 50 ml STAT PRN IV BS less than 60mg/dl 06/01/17 19:30 07/01/17 19:29 Dextrose/Sodium Chloride 1,000 ml @ 75 mls/hr [id number] IV 06/01/17 19:26 07/01/17 19:25 06/03/17 11:37 Diphenhydramine HCl (Benadryl) 25 mg Q6H PRN ORAL Itching/Pruritis 06/01/17 19:30 07/01/17 19:29 Donepezil HCl (Aricept) 5 mg QHS ORAL 06/02/17 21:00 07/02/17 20:59 06/02/17 21:01 Heparin Sodium (Porcine) (Heparin 5000 units/ml) 5,000 units EVERY 12 HOURS SUBQ 06/01/17 21:00 07/01/17 20:59 06/03/17 09:40 Lisinopril (Prinivil) 20 mg DAILY ORAL 06/02/17 09:00 07/02/17 08:59 06/03/17 09:43 Lorazepam (Ativan 2mg/ml 1ml) 1 mg EVERY 4 HOURS PRN IV agitation 06/01/17 19:30 06/08/17 19:29 06/02/17 14:50 Lorazepam (Ativan) 1 mg Q4H PRN ORAL For Anxiety 06/02/17 17:15 06/09/17 17:14 Mirtazapine (Remeron) 15 mg BEDTIME ORAL 06/02/17 21:00 07/02/17 20:59 06/02/17 21:01 Morphine Sulfate (Morphine Sulfate) 2 mg EVERY 4 HOURS PRN IVP severe Pain (Pain Scale 7-10) 06/01/17 19:30 06/08/17 19:29 Nitroglycerin (Ntg) 0.4 mg Q5M X 3 DOSES PRN SL Prn Chest Pain 06/01/17 19:30 07/01/17 19:29 Ondansetron HCl (Zofran) 4 mg Q6H PRN IVP Nausea & Vomiting 06/01/17 19:30 07/01/17 19:29 Pantoprazole (Protonix) 40 mg DAILY IV 06/02/17 09:00 07/02/17 08:59 06/03/17 09:39 Polyethylene Glycol (Miralax) 17 gm BEDTIME ORAL 06/02/17 21:00 07/02/17 20:59 06/02/17 21:01 Polyethylene Glycol (Miralax) 17 gm HSPRN PRN ORAL Constipation 06/01/17 19:30 07/01/17 19:29 Promethazine HCl 25 mg/Dextrose 56 ml @ 110 mls/hr Q6H PRN IV Refractory N/V 06/01/17 19:30 07/01/17 19:29 Promethazine HCl/ Codeine (Phenergan with Codeine) 5 ml Q4H PRN ORAL For Cough 06/01/17 19:30 07/01/17 19:29 Temazepam (Restoril) 15 mg HSPRN PRN ORAL Insomnia 06/01/17 19:30 06/08/17 19:29 06/03/17 01:43 Trazodone HCl (Desyrel) 25 mg BEDTIME ORAL 06/01/17 21:00 07/01/17 20:59 06/02/17 21:02 Rosio Prince MD Jun 03, 2017 14:56
--- NOTE | 2017-06-03 15:10 | Consultation ---
History of Present Illness General Date patient seen: Jun 03, 2017 Time patient seen: 17:13 Chief Complaint: Nausea, Vomiting, and Diarrhea Referring physician: DYLAN HOROWITZ Reason for Consultation: desaturation Present Illness HPI 66 y/o M with hx of HTN, CVA w/ residual L side weakness, Alzheimer Dementia, HLD, UTI, non verbal, MDD w/ psychotic features, prison resident presents to ED on 06/01 with several episodes of vomiting and diarrhea as well as confusion. Also reported episode of desaturation. He was found to have mild leukocytosis. KUB shows possible fecal impactation . Allergies: Coded Allergies: EGG (Verified Allergy, Unknown, 06/01/17) SOYBEAN (Verified Allergy, Unknown, 06/01/17) Shrimp (Verified Allergy, Unknown, 06/01/17) Medication History Scheduled Atorvastatin Calcium* (Lipitor*), 10 MG ORAL BEDTIME, (Reported) Docusate Sodium* (Docusate Sodium*), 100 MG ORAL TWICE A DAY, (Reported) Donepezil Hcl* (Aricept*), 10 MG ORAL DAILY, (Reported) Lisinopril (Lisinopril*), 20 MG ORAL DAILY, (Reported) Mirtazapine* (Remeron*), 15 MG ORAL BEDTIME, (Reported) Trazodone* (Trazodone*), 25 MG ORAL BEDTIME, (Reported) Scheduled PRN Acetaminophen* (Acetaminophen 325MG Tablet*), 650 MG ORAL Q4H PRN for For Pain, (Reported) Patient History Healthcare decision maker Resuscitation status Advanced Directive on File Yes Patient History Narrative Pmhx: as above Shx:Per patient, positive smoking. No alcohol. No intravenous drug abus Fhx: non contributory Review of Systems All Other Systems: negative except mentioned in HPI Physical Exam Physical Exam Narrative GENERAL: Calm in bed, oriented x1, in no acute distress. CARDIOVASCULAR: No murmur. LUNGS: Distant and clear. ABDOMEN: Bowel sounds positive. Distended. Soft. No guarding. No rigidity. No rebound. EXTREMITIES: No cyanosis, clubbing, or edema. NEUROLOGIC: The patient moves all extremities. Does not want to follow commands. Last 24 Hour Vital Signs Date Time Temp Pulse Resp B/P (MAP) Pulse Ox O2 Delivery O2 Flow Rate FiO2 06/03/17 12:00 97.7 53 16 104/54 96 97.7 06/03/17 09:43 123/78 06/03/17 08:31 60 06/03/17 08:00 96.8 51 20 123/78 97 96.8 06/03/17 04:00 97.9 79 18 156/66 96 97.9 06/02/17 23:56 97.6 69 18 141/90 95 97.6 06/02/17 20:00 97.2 64 18 141/86 92 97.2 06/02/17 16:00 98.2 65 18 136/74 96 98.2 Intake and Output 06/02/17 06/03/17 19:00 07:00 Intake Total 915 ml 250 ml Balance 915 ml 250 ml Intake Oral 240 ml 250 ml IV Total 675 ml # Voids 2 4 # Bowel Movements 2 Height (Feet): 5 Height (Inches): 9.00 Weight (Pounds): 165 Medications Current Medications Medications (Trade) Dose Ordered Sig/Dandy Route PRN Reason Start Time Stop Time Status Last Admin Dose Admin Acetaminophen (Tylenol) 650 mg Q4H PRN ORAL fever 06/01/17 19:30 07/01/17 19:29 Al Hydroxide/Mg Hydroxide (Mylanta II) 30 ml Q6H PRN ORAL dyspepsia 06/01/17 19:30 07/01/17 19:29 Atorvastatin Calcium (Lipitor) 10 mg BEDTIME ORAL 06/01/17 21:00 07/01/17 20:59 06/02/17 21:01 Dextrose (Dextrose 50%) 25 ml STAT PRN IV BS 60-69mg/dl 06/01/17 20:15 07/01/17 20:14 Dextrose (Dextrose 50%) 50 ml STAT PRN IV BS less than 60mg/dl 06/01/17 19:30 07/01/17 19:29 Dextrose/Sodium Chloride 1,000 ml @ 75 mls/hr [id number] IV 06/01/17 19:26 07/01/17 19:25 06/03/17 11:37 Diphenhydramine HCl (Benadryl) 25 mg Q6H PRN ORAL Itching/Pruritis 06/01/17 19:30 07/01/17 19:29 Donepezil HCl (Aricept) 5 mg QHS ORAL 06/02/17 21:00 07/02/17 20:59 06/02/17 21:01 Heparin Sodium (Porcine) (Heparin 5000 units/ml) 5,000 units EVERY 12 HOURS SUBQ 06/01/17 21:00 07/01/17 20:59 06/03/17 09:40 Lisinopril (Prinivil) 20 mg DAILY ORAL 06/02/17 09:00 07/02/17 08:59 06/03/17 09:43 Lorazepam (Ativan 2mg/ml 1ml) 1 mg EVERY 4 HOURS PRN IV agitation 06/01/17 19:30 06/08/17 19:29 06/02/17 14:50 Lorazepam (Ativan) 1 mg Q4H PRN ORAL For Anxiety 06/02/17 17:15 06/09/17 17:14 Mirtazapine (Remeron) 15 mg BEDTIME ORAL 06/02/17 21:00 07/02/17 20:59 06/02/17 21:01 Morphine Sulfate (Morphine Sulfate) 2 mg EVERY 4 HOURS PRN IVP severe Pain (Pain Scale 7-10) 06/01/17 19:30 06/08/17 19:29 Nitroglycerin (Ntg) 0.4 mg Q5M X 3 DOSES PRN SL Prn Chest Pain 06/01/17 19:30 07/01/17 19:29 Ondansetron HCl (Zofran) 4 mg Q6H PRN IVP Nausea & Vomiting 06/01/17 19:30 07/01/17 19:29 Pantoprazole (Protonix) 40 mg DAILY IV 06/02/17 09:00 07/02/17 08:59 06/03/17 09:39 Polyethylene Glycol (Miralax) 17 gm BEDTIME ORAL 06/02/17 21:00 07/02/17 20:59 06/02/17 21:01 Polyethylene Glycol (Miralax) 17 gm HSPRN PRN ORAL Constipation 06/01/17 19:30 07/01/17 19:29 Promethazine HCl 25 mg/Dextrose 56 ml @ 110 mls/hr Q6H PRN IV Refractory N/V 06/01/17 19:30 07/01/17 19:29 Promethazine HCl/ Codeine (Phenergan with Codeine) 5 ml Q4H PRN ORAL For Cough 06/01/17 19:30 07/01/17 19:29 Temazepam (Restoril) 15 mg HSPRN PRN ORAL Insomnia 06/01/17 19:30 06/08/17 19:29 06/03/17 01:43 Trazodone HCl (Desyrel) 25 mg BEDTIME ORAL 06/01/17 21:00 07/01/17 20:59 06/02/17 21:02 Assessment/Plan Assessment/Plan Abx: None Assessment: Nausea/vomiting- ? due to fecal impaction -KUB: Possible mild rectal fecal impaction. Otherwise no acute process -Abd uS:The pancreas, portions of the aorta and liverare not visualized. Within these limitations: Apparent layering echogenic material in the gallbladder likely artifact. Gallbladder sludge not entirely excluded. No gallbladder wall thickening, abnormal gallbladder distention or pericholecystic fluid seen. Sonographic Sanches sign was not documented. Suboptimal evaluation of the common bile duct. Likely within normal limits however some images suggest dilatation of the common bile duct to 1 cm. Borderline hepatosplenomegaly. Simple appearing left renal cyst. Mild leukocytosis, likely reactive- no evidence of infectious process at present -afebrile -u/a neg -CXR: No acute process. HTN CVA w/ residual L side weakness Alzheimer Dementia HLD hx of UTI non verbal MDD w/ psychotic features prison resident Plan: -Continue to monitor off abx -f/u cx -Monitor CBC/BMP, temperatures -GI f/u -aspiration precautions Thank you for this consultation. Will continue to follow along with you. Discussed with Iveth Mcnamara M.D. Jun 03, 2017 15:10
[2017-06-03 15:56] VITALS: BP 130/68
[2017-06-03 20:00] VITALS: BP 120/79
[2017-06-03] MEDS: TraZODone HCl 25 mg tablet ORAL SCH (21:04)
[2017-06-03] MEDS: Donepezil 5mg Tab ORAL SCH (21:04)
[2017-06-03] MEDS: Miralax 17gm pkt ORAL SCH (21:05)
[2017-06-04] VITALS: BP 115/70
[2017-06-04] MEDS: D5 1/2NS 1,000 ML IV SCH ×2 (02:44→14:06)
[2017-06-04 04:00] VITALS: BP 110/69
[2017-06-04 07:24] LABS: BASOPHILS % (AUTO) 0.8 % (0.0-2.0); EOSINOPHILS % (AUTO) 2.7 % (0.0-3.0); HEMATOCRIT 39.7 % (42.0-52.0); HEMOGLOBIN 13.7 G/DL (14.2-18.0); LYMPHOCYTES % (AUTO) 28.8 % (20.0-45.0); MEAN CORPUSCULAR VOLUME 85 FL (80-99); MONOCYTES % (AUTO) 7.4 % (1.0-10.0); NEUTROPHILS % (AUTO) 60.3 % (45.0-75.0); PLATELET COUNT 134 K/UL (150-450); RED BLOOD COUNT 4.65 M/UL (4.70-6.10); WHITE BLOOD COUNT 6.2 K/UL (4.8-10.8)
--- NOTE | 2017-06-04 07:45 | Consultation ---
DATE OF CONSULTATION: 06/02/2017 PSYCHOTHERAPY CONSULTATION PROGRESS NOTE CONSULTING PHYSICIAN: Christin Vargas PsyD. TREATING ATTENDING PHYSICIAN: Jeremy Cuadra D.O. HISTORY OF PRESENT ILLNESS: The patient is a 66-year-old male patient from [facility]. The patient was admitted to the hospital for nausea and vomiting. He had confusion and disorganization of thought process. His mood is labile, unstable and for these reasons, he was referred for psychotherapeutic services. This clinician assessed the patient. The patient is confused and disorganized, helpless. Currently agitated in his room. The patient has no logical or viable plan for self-care or safety at this time. There is no indication of suicidal or homicidal thoughts of ideation. There is no indication of auditory or visual hallucinations. confusion and disorganization and irritability. PAST MEDICAL HISTORY: Includes a history of hyperlipidemia. ALLERGIES: The patient has no known drug allergies. SUBSTANCE ABUSE HISTORY: There is no indication of alcohol use or illicit substance use. PSYCHIATRIC HISTORY: The patient has a history of major depressive disorder with psychotic features. SOCIAL HISTORY: The patient is a 66-year-old male patient from [facility]. Financially sustained through [employer]. MENTAL STATUS EXAMINATION: The patient is alert and oriented to person, place, and time. His mood is irritable. Affect is labile. Thought process is disorganized. Thought content is confused. He has poor attention and concentration. Poor insight, judgment, and impulse control. DIAGNOSIS: Major depressive disorder with psychotic features. PLAN: This clinician assessed this patient. Provide the patient with reality orientation. Provide the patient with supportive psychotherapy. Encouraging the patient to participate in treatment milieu if no improvement. . Continue with behavioral management. This clinician has reviewed the patient's chart and discussed the treatment with treatment team. Christin Vargas PsyD. DR: Bishnu JOB#: [id number] CC:
[2017-06-04 07:48] LABS: ANION GAP 11 mmol/L (5-15); BLOOD UREA NITROGEN 12 mg/dL (7-18); CALCIUM 8.3 MG/DL (8.5-10.1); CARBON DIOXIDE 25 MMOL/L (21-32); CHLORIDE 106 MMOL/L (98-107); POTASSIUM 3.2 MMOL/L (3.5-5.1); SODIUM 142 MMOL/L (136-145)
--- NOTE | 2017-06-04 08:01 | Progress Note ---
DATE: 06/03/2017 SUBJECTIVE: This is a 66-year-old male patient with persistent nausea. He is still confused and disorganized. He has diagnosis bipolar 2, rule out depression with psychotic features. MENTAL STATUS EXAMINATION: The patient is a 66-year-old male. Psychomotor retardation. Mood is depressed. Affect guarded and restricted. Thought process, disorganized and illogical. He has no suicidal or homicidal ideations. Insight and judgment are poor. DIAGNOSES: 1. Major depressive disorder psychotic features. 2. Bipolar 2 . PLAN: Treat him with Aricept 5 mg Remeron 15 mg at bedtime, trazodone 25 mg at bedtime, and Ativan 1 mg IV q.4 h. hours p.r.n. anxiety and agitation. 18 to 20 minutes supportive therapy provided. Chart reviewed and discussed staff. Tan Scott M.D. DR: SONIDO JOB#: [id number] CC:
[2017-06-04 08:02] LABS: PHOSPHORUS 4.1 MG/DL (2.5-4.9)
[2017-06-04 08:11] VITALS: BP 124/74
[2017-06-04] MEDS: Pantoprazole Inj IV SCH (09:25)
[2017-06-04] MEDS: Lisinopril 20mg tab ORAL SCH (09:26)
[2017-06-04] MEDS: Heparin 5000 units/ml inj SUBQ SCH (09:37)
--- NOTE | 2017-06-04 10:49 | GI Progress Note ---
Assessment/Plan Problems: (1) Cerebrovascular accident (CVA) ICD Codes: I63.9 - Cerebral infarction, unspecified SNOMED: 764540126 (2) At high risk for aspiration ICD Codes: Z91.89 - Other specified personal risk factors, not elsewhere classified SNOMED: 064589722 (3) Fecal impaction in rectum ICD Codes: K56.41 - Fecal impaction SNOMED: 47187415 (4) Malnutrition ICD Codes: E46 - Unspecified protein-calorie malnutrition SNOMED: 93810726 (5) Dysphagia as late effect of cerebrovascular accident (CVA) ICD Codes: I69.391 - Dysphagia following cerebral infarction SNOMED: 372895478 (6) Dehydration ICD Codes: E86.0 - Dehydration SNOMED: 79661026 (7) Nausea, vomiting, and diarrhea ICD Codes: R11.2 - Nausea with vomiting, unspecified; R19.7 - Diarrhea, unspecified SNOMED: 7257245 Status: stable Status Narrative Discussed with Dr. Summers. Assessment/Plan KUB reviewed >> possible fecal impaction >> had big BM yesterday bowel regime >> colace + miralax ST evaluation given history of CVA strict aspiration precautions ok to adv diet ppi zofran prn, reglan for persistent vomiting prn transfusions electrolyte correction fu labs dc planning Subjective Gastrointestinal/Abdominal: Reports: no symptoms Objective Last 24 Hour Vital Signs Date Time Temp Pulse Resp B/P (MAP) Pulse Ox O2 Delivery O2 Flow Rate FiO2 06/04/17 09:26 124/74 06/04/17 08:11 98.2 63 20 124/74 98 98.2 06/04/17 04:00 98.8 68 18 110/69 93 98.8 06/04/17 00:00 Room Air 06/04/17 00:00 98.3 66 18 115/70 92 98.3 06/03/17 20:00 98.8 52 18 120/79 94 98.8 06/03/17 15:56 97.8 97 20 130/68 97 97.8 06/03/17 12:05 62 06/03/17 12:00 97.7 53 16 104/54 96 97.7 Intake and Output 06/03/17 06/04/17 19:00 07:00 Intake Total 850 ml 1025 ml Balance 850 ml 1025 ml Intake Oral 100 ml 200 ml IV Total 750 ml 825 ml # Voids 2 5 Laboratory Tests Test 06/04/17 05:00 White Blood Count 6.2 K/UL (4.8-10.8) Red Blood Count 4.65 M/UL (4.70-6.10) L Hemoglobin 13.7 G/DL (14.2-18.0) L Hematocrit 39.7 % (42.0-52.0) L Mean Corpuscular Volume 85 FL (80-99) Mean Corpuscular Hemoglobin 29.5 PG (27.0-31.0) Mean Corpuscular Hemoglobin Concent 34.6 G/DL (32.0-36.0) Red Cell Distribution Width 13.0 % (11.6-14.8) Platelet Count 134 K/UL (150-450) L Mean Platelet Volume 9.8 FL (6.5-10.1) Neutrophils (%) (Auto) 60.3 % (45.0-75.0) Lymphocytes (%) (Auto) 28.8 % (20.0-45.0) Monocytes (%) (Auto) 7.4 % (1.0-10.0) Eosinophils (%) (Auto) 2.7 % (0.0-3.0) Basophils (%) (Auto) 0.8 % (0.0-2.0) Sodium Level 142 MMOL/L (136-145) Potassium Level 3.2 MMOL/L (3.5-5.1) L Chloride Level 106 MMOL/L (98-107) Carbon Dioxide Level 25 MMOL/L (21-32) Anion Gap 11 mmol/L (5-15) Blood Urea Nitrogen 12 mg/dL (7-18) Creatinine 1.0 MG/DL (0.55-1.30) Estimat Glomerular Filtration Rate > 60 mL/min (>60) Glucose Level 91 MG/DL (74-106) Calcium Level 8.3 MG/DL (8.5-10.1) L Phosphorus Level 4.1 MG/DL (2.5-4.9) Magnesium Level 1.9 MG/DL (1.8-2.4) Height (Feet): 5 Height (Inches): 9.00 Weight (Pounds): 165 General Appearance: alert Cardiovascular: normal rate Respiratory/Chest: normal breath sounds, no respiratory distress Abdominal Exam: soft Extremities: normal range of motion, non-tender Objective Had massive bowel movement last night Geovanna Guzman N.P. Jun 04, 2017 10:49
--- NOTE | 2017-06-04 11:30 | Progress Note ---
DATE: 06/04/2017 SUBJECTIVE: This is a 66-year-old male patient, who has persistent nausea. This patient continued to have some mood lability, confusion, and disorganized thought process and decline in his cognition. MENTAL STATUS EXAMINATION: The patient is a 66-year-old male. Appearance is disheveled. Attitude, irritable and agitated. Affect, guarded and restricted. Intellect poor. Mood depressed and anxious. Motor activity, psychomotor agitation. Attention span is poor. Orientation x2. Speech is pressured. Thought process, disorganized and illogical. Thought content, auditory hallucinations and paranoid delusions. Insight and judgment is poor. DIAGNOSIS: Major depression with psychotic features. PLAN: Treat him with Remeron 15 mg at bedtime, trazodone 25 mg at bedtime, Aricept 5 mg at bedtime to prevent any further decline in cognition, and Ativan 1 mg IV q.4 h. p.r.n. anxiety and agitation. Provided 18 to 20 minutes of supportive psychotherapy. Chart reviewed. Discussed with staff. The patient is seen and assessed at bedside. Tan Scott M.D. DR: VINICIO JOB#: [id number] CC:
[2017-06-04 11:39] VITALS: BP 130/68
--- NOTE | 2017-06-04 11:55 | Infectious Diseases Prog Note ---
Assessment/Plan Assessment/Plan Abx: None Assessment: Nausea/vomiting, resolved- ? due to fecal impaction -KUB: Possible mild rectal fecal impaction. Otherwise no acute process -Abd uS:The pancreas, portions of the aorta and liverare not visualized. Within these limitations: Apparent layering echogenic material in the gallbladder likely artifact. Gallbladder sludge not entirely excluded. No gallbladder wall thickening, abnormal gallbladder distention or pericholecystic fluid seen. Sonographic Sanches sign was not documented. Suboptimal evaluation of the common bile duct. Likely within normal limits however some images suggest dilatation of the common bile duct to 1 cm. Borderline hepatosplenomegaly. Simple appearing left renal cyst. Mild leukocytosis, likely reactive- resolved- no evidence of infectious process at present -afebrile -u/a neg -CXR: No acute process. HTN CVA w/ residual L side weakness Alzheimer Dementia HLD hx of UTI non verbal MDD w/ psychotic features snf resident Plan: -Continue to monitor off abx; ok for discharge from ID standpoint -f/u cx -Monitor CBC/BMP, temperatures -GI f/u -aspiration precautions Thank you for this consultation. Will continue to follow along with you. Discussed with RN. Subjective Allergies: Coded Allergies: EGG (Verified Allergy, Unknown, 06/01/17) SOYBEAN (Verified Allergy, Unknown, 06/01/17) Shrimp (Verified Allergy, Unknown, 06/01/17) Subjective afebrile leukocytosis resolved off abx had big BM yesterday Objective Vital Signs Last 24 Hour Vital Signs Date Time Temp Pulse Resp B/P (MAP) Pulse Ox O2 Delivery O2 Flow Rate FiO2 06/04/17 11:39 97.8 65 20 130/68 98 97.8 06/04/17 09:26 124/74 06/04/17 08:11 98.2 63 20 124/74 98 98.2 06/04/17 04:00 98.8 68 18 110/69 93 98.8 06/04/17 00:00 Room Air 06/04/17 00:00 98.3 66 18 115/70 92 98.3 06/03/17 20:00 98.8 52 18 120/79 94 98.8 06/03/17 15:56 97.8 97 20 130/68 97 97.8 06/03/17 12:05 62 4/25/18 12:00 97.7 53 16 104/54 96 97.7 Height (Feet): 5 Height (Inches): 9.00 Weight (Pounds): 165 Objective GENERAL: Calm in bed, oriented x1, in no acute distress. CARDIOVASCULAR: No murmur. LUNGS: Distant and clear. ABDOMEN: Bowel sounds positive. Distended. Soft. No guarding. No rigidity. No rebound. EXTREMITIES: No cyanosis, clubbing, or edema. NEUROLOGIC: The patient moves all extremities. Does not want to follow commands. Microbiology Date/Time Source Procedure Growth Status 06/01/17 16:25 Nasal Nares MRSA Culture - Final NO METHICILLIN RESISTANT STAPH AUREUS... Complete 06/01/17 16:25 Rectum VRE Culture - Final NO VANCOMYCIN RESISTANT ENTEROCOCCUS ... Complete Laboratory Tests Test 06/04/17 05:00 White Blood Count 6.2 K/UL (4.8-10.8) Red Blood Count 4.65 M/UL (4.70-6.10) L Hemoglobin 13.7 G/DL (14.2-18.0) L Hematocrit 39.7 % (42.0-52.0) L Mean Corpuscular Volume 85 FL (80-99) Mean Corpuscular Hemoglobin 29.5 PG (27.0-31.0) Mean Corpuscular Hemoglobin Concent 34.6 G/DL (32.0-36.0) Red Cell Distribution Width 13.0 % (11.6-14.8) Platelet Count 134 K/UL (150-450) L Mean Platelet Volume 9.8 FL (6.5-10.1) Neutrophils (%) (Auto) 60.3 % (45.0-75.0) Lymphocytes (%) (Auto) 28.8 % (20.0-45.0) Monocytes (%) (Auto) 7.4 % (1.0-10.0) Eosinophils (%) (Auto) 2.7 % (0.0-3.0) Basophils (%) (Auto) 0.8 % (0.0-2.0) Sodium Level 142 MMOL/L (136-145) Potassium Level 3.2 MMOL/L (3.5-5.1) L Chloride Level 106 MMOL/L (98-107) Carbon Dioxide Level 25 MMOL/L (21-32) Anion Gap 11 mmol/L (5-15) Blood Urea Nitrogen 12 mg/dL (7-18) Creatinine 1.0 MG/DL (0.55-1.30) Estimat Glomerular Filtration Rate > 60 mL/min (>60) Glucose Level 91 MG/DL (74-106) Calcium Level 8.3 MG/DL (8.5-10.1) L Phosphorus Level 4.1 MG/DL (2.5-4.9) Magnesium Level 1.9 MG/DL (1.8-2.4) Current Medications Medications (Trade) Dose Ordered Sig/Dandy Route PRN Reason Start Time Stop Time Status Last Admin Dose Admin Acetaminophen (Tylenol) 650 mg Q4H PRN ORAL fever 06/01/17 19:30 07/01/17 19:29 Al Hydroxide/Mg Hydroxide (Mylanta II) 30 ml Q6H PRN ORAL dyspepsia 06/01/17 19:30 07/01/17 19:29 Atorvastatin Calcium (Lipitor) 10 mg BEDTIME ORAL 06/01/17 21:00 07/01/17 20:59 06/03/17 21:05 Dextrose (Dextrose 50%) 25 ml STAT PRN IV BS 60-69mg/dl 06/01/17 20:15 07/01/17 20:14 Dextrose (Dextrose 50%) 50 ml STAT PRN IV BS less than 60mg/dl 06/01/17 19:30 07/01/17 19:29 Dextrose/Sodium Chloride 1,000 ml @ 75 mls/hr [id number] IV 06/01/17 19:26 07/01/17 19:25 06/04/17 02:44 Diphenhydramine HCl (Benadryl) 25 mg Q6H PRN ORAL Itching/Pruritis 06/01/17 19:30 07/01/17 19:29 Donepezil HCl (Aricept) 5 mg QHS ORAL 06/02/17 21:00 07/02/17 20:59 06/03/17 21:04 Heparin Sodium (Porcine) (Heparin 5000 units/ml) 5,000 units EVERY 12 HOURS SUBQ 06/01/17 21:00 07/01/17 20:59 06/04/17 09:37 Lisinopril (Prinivil) 20 mg DAILY ORAL 4/24/18 09:00 07/02/17 08:59 06/04/17 09:26 Lorazepam (Ativan 2mg/ml 1ml) 1 mg EVERY 4 HOURS PRN IV agitation 06/01/17 19:30 06/08/17 19:29 06/02/17 14:50 Lorazepam (Ativan) 1 mg Q4H PRN ORAL For Anxiety 06/02/17 17:15 06/09/17 17:14 Mirtazapine (Remeron) 15 mg BEDTIME ORAL 06/02/17 21:00 07/02/17 20:59 06/03/17 21:05 Morphine Sulfate (Morphine Sulfate) 2 mg EVERY 4 HOURS PRN IVP severe Pain (Pain Scale 7-10) 06/01/17 19:30 06/08/17 19:29 Nitroglycerin (Ntg) 0.4 mg Q5M X 3 DOSES PRN SL Prn Chest Pain 06/01/17 19:30 07/01/17 19:29 Ondansetron HCl (Zofran) 4 mg Q6H PRN IVP Nausea & Vomiting 06/01/17 19:30 07/01/17 19:29 Pantoprazole (Protonix) 40 mg DAILY IV 06/02/17 09:00 07/02/17 08:59 06/04/17 09:25 Polyethylene Glycol (Miralax) 17 gm BEDTIME ORAL 06/02/17 21:00 07/02/17 20:59 06/03/17 21:05 Polyethylene Glycol (Miralax) 17 gm HSPRN PRN ORAL Constipation 06/01/17 19:30 07/01/17 19:29 Promethazine HCl 25 mg/Dextrose 56 ml @ 110 mls/hr Q6H PRN IV Refractory N/V 06/01/17 19:30 07/01/17 19:29 Promethazine HCl/ Codeine (Phenergan with Codeine) 5 ml Q4H PRN ORAL For Cough 06/01/17 19:30 07/01/17 19:29 Temazepam (Restoril) 15 mg HSPRN PRN ORAL Insomnia 06/01/17 19:30 06/08/17 19:29 06/03/17 01:43 Trazodone HCl (Desyrel) 25 mg BEDTIME ORAL 06/01/17 21:00 07/01/17 20:59 06/03/17 21:04 Iveth Jang M.D. Jun 04, 2017 11:55
--- NOTE | 2017-06-04 13:44 | General Progress Note ---
Assessment/Plan Problem List: (1) Nausea, vomiting, and diarrhea ICD Codes: R11.2 - Nausea with vomiting, unspecified; R19.7 - Diarrhea, unspecified SNOMED: 0174718 (2) HTN (hypertension) ICD Codes: I10 - Essential (primary) hypertension SNOMED: 39159169 (3) Hypoxemia ICD Codes: R09.02 - Hypoxemia SNOMED: 452520168 Status: stable, progressing, tolerating diet Assessment/Plan o2 pulm tx ot pt diet abx prn cbc bmp am gi f/u dc if clear Subjective Constitutional: Reports: weakness Allergies: Coded Allergies: EGG (Verified Allergy, Unknown, 06/01/17) SOYBEAN (Verified Allergy, Unknown, 06/01/17) Shrimp (Verified Allergy, Unknown, 06/01/17) All Systems: reviewed and negative except above Subjective sleepy in bed ate ok Objective Last 24 Hour Vital Signs Date Time Temp Pulse Resp B/P (MAP) Pulse Ox O2 Delivery O2 Flow Rate FiO2 06/04/17 11:39 97.8 65 20 130/68 98 97.8 06/04/17 09:26 124/74 06/04/17 08:11 98.2 63 20 124/74 98 98.2 06/04/17 04:00 98.8 68 18 110/69 93 98.8 06/04/17 00:00 Room Air 06/04/17 00:00 98.3 66 18 115/70 92 98.3 06/03/17 20:00 98.8 52 18 120/79 94 98.8 06/03/17 15:56 97.8 97 20 130/68 97 97.8 Intake and Output 06/03/17 06/04/17 19:00 07:00 Intake Total 850 ml 1025 ml Balance 850 ml 1025 ml Intake Oral 100 ml 200 ml IV Total 750 ml 825 ml # Voids 2 5 Laboratory Tests 06/04/17 05:00: White Blood Count 6.2, Red Blood Count 4.65L, Hemoglobin 13.7L, Hematocrit 39.7L , Mean Corpuscular Volume 85, Mean Corpuscular Hemoglobin 29.5, Mean Corpuscular Hemoglobin Concent 34.6, Red Cell Distribution Width 13.0, Platelet Count 134L, Mean Platelet Volume 9.8, Neutrophils (%) (Auto) 60.3, Lymphocytes ( %) (Auto) 28.8, Monocytes (%) (Auto) 7.4, Eosinophils (%) (Auto) 2.7, Basophils (%) (Auto) 0.8, Sodium Level 142, Potassium Level 3.2L, Chloride Level 106, Carbon Dioxide Level 25, Anion Gap 11, Blood Urea Nitrogen 12, Creatinine 1.0, Estimat Glomerular Filtration Rate > 60, Glucose Level 91, Calcium Level 8.3L, Phosphorus Level 4.1, Magnesium Level 1.9 Height (Feet): 5 Height (Inches): 9.00 Weight (Pounds): 165 General Appearance: lethargic EENT: normal ENT inspection Neck: normal alignment Cardiovascular: normal peripheral pulses, normal rate, regular rhythm Respiratory/Chest: chest wall non-tender, lungs clear, normal breath sounds Abdomen: normal bowel sounds, non tender, soft Extremities: normal inspection Edema: no edema noted Arm (L), no edema noted Arm (R), no edema noted Leg (L), no edema noted Leg (R), no edema noted Pedal (L), no edema noted Pedal (R), no edema noted Generalized Neurologic: responsive, motor weakness Skin: normal pigmentation, warm/dry DYLAN HOROWITZ Jun 04, 2017 13:44
--- NOTE | 2017-06-04 14:48 | Pulmonology Progress Note ---
Assessment/Plan Problems: (1) Hypoxemia (2) At high risk for aspiration (3) Nausea, vomiting, and diarrhea (4) long-term resident (5) HTN (hypertension) (6) Cerebrovascular accident (CVA) Assessment/Plan doing better aspiration precaution swallow study reviewed symptomatic treatment titrate fio2 to sat of 92% respiratory treatment dvt prophylaxis fall precaution dc planning in process Subjective ROS Limited/Unobtainable: No Interval Events: no new complaisn Allergies: Coded Allergies: EGG (Verified Allergy, Unknown, 06/01/17) SOYBEAN (Verified Allergy, Unknown, 06/01/17) Shrimp (Verified Allergy, Unknown, 06/01/17) Objective Last 24 Hour Vital Signs Date Time Temp Pulse Resp B/P (MAP) Pulse Ox O2 Delivery O2 Flow Rate FiO2 06/04/17 11:39 97.8 65 20 130/68 98 97.8 06/04/17 09:26 124/74 06/04/17 08:11 98.2 63 20 124/74 98 98.2 06/04/17 04:00 98.8 68 18 110/69 93 98.8 06/04/17 00:00 Room Air 06/04/17 00:00 98.3 66 18 115/70 92 98.3 06/03/17 20:00 98.8 52 18 120/79 94 98.8 06/03/17 15:56 97.8 97 20 130/68 97 97.8 Intake and Output 06/03/17 06/04/17 19:00 07:00 Intake Total 850 ml 1025 ml Balance 850 ml 1025 ml Intake Oral 100 ml 200 ml IV Total 750 ml 825 ml # Voids 2 5 General Appearance: WD/WN HEENT: normocephalic, atraumatic Respiratory/Chest: chest wall non-tender, lungs clear Cardiovascular: normal peripheral pulses, normal rate Abdomen: normal bowel sounds, soft, non tender Genitourinary: normal external genitalia Extremities: no clubbing Neurologic/Psychiatric: no motor/sensory deficits Microbiology Date/Time Source Procedure Growth Status 06/01/17 16:25 Nasal Nares MRSA Culture - Final NO METHICILLIN RESISTANT STAPH AUREUS... Complete 06/01/17 16:25 Rectum VRE Culture - Final NO VANCOMYCIN RESISTANT ENTEROCOCCUS ... Complete Laboratory Tests 06/04/17 05:00: White Blood Count 6.2, Red Blood Count 4.65L, Hemoglobin 13.7L, Hematocrit 39.7L , Mean Corpuscular Volume 85, Mean Corpuscular Hemoglobin 29.5, Mean Corpuscular Hemoglobin Concent 34.6, Red Cell Distribution Width 13.0, Platelet Count 134L, Mean Platelet Volume 9.8, Neutrophils (%) (Auto) 60.3, Lymphocytes ( %) (Auto) 28.8, Monocytes (%) (Auto) 7.4, Eosinophils (%) (Auto) 2.7, Basophils (%) (Auto) 0.8, Sodium Level 142, Potassium Level 3.2L, Chloride Level 106, Carbon Dioxide Level 25, Anion Gap 11, Blood Urea Nitrogen 12, Creatinine 1.0, Estimat Glomerular Filtration Rate > 60, Glucose Level 91, Calcium Level 8.3L, Phosphorus Level 4.1, Magnesium Level 1.9 Current Medications Medications (Trade) Dose Ordered Sig/Dandy Route PRN Reason Start Time Stop Time Status Last Admin Dose Admin Acetaminophen (Tylenol) 650 mg Q4H PRN ORAL fever 06/01/17 19:30 07/01/17 19:29 Al Hydroxide/Mg Hydroxide (Mylanta II) 30 ml Q6H PRN ORAL dyspepsia 06/01/17 19:30 07/01/17 19:29 Atorvastatin Calcium (Lipitor) 10 mg BEDTIME ORAL 06/01/17 21:00 07/01/17 20:59 06/03/17 21:05 Dextrose (Dextrose 50%) 25 ml STAT PRN IV BS 60-69mg/dl 06/01/17 20:15 07/01/17 20:14 Dextrose (Dextrose 50%) 50 ml STAT PRN IV BS less than 60mg/dl 06/01/17 19:30 07/01/17 19:29 Dextrose/Sodium Chloride 1,000 ml @ 75 mls/hr [id number] IV 06/01/17 19:26 07/01/17 19:25 06/04/17 02:44 Diphenhydramine HCl (Benadryl) 25 mg Q6H PRN ORAL Itching/Pruritis 06/01/17 19:30 07/01/17 19:29 Donepezil HCl (Aricept) 5 mg QHS ORAL 06/02/17 21:00 07/02/17 20:59 06/03/17 21:04 Heparin Sodium (Porcine) (Heparin 5000 units/ml) 5,000 units EVERY 12 HOURS SUBQ 06/01/17 21:00 07/01/17 20:59 06/04/17 09:37 Lisinopril (Prinivil) 20 mg DAILY ORAL 06/02/17 09:00 07/02/17 08:59 06/04/17 09:26 Lorazepam (Ativan 2mg/ml 1ml) 1 mg EVERY 4 HOURS PRN IV agitation 06/01/17 19:30 06/08/17 19:29 06/02/17 14:50 Lorazepam (Ativan) 1 mg Q4H PRN ORAL For Anxiety 06/02/17 17:15 06/09/17 17:14 Mirtazapine (Remeron) 15 mg BEDTIME ORAL 06/02/17 21:00 07/02/17 20:59 06/03/17 21:05 Morphine Sulfate (Morphine Sulfate) 2 mg EVERY 4 HOURS PRN IVP severe Pain (Pain Scale 7-10) 06/01/17 19:30 06/08/17 19:29 Nitroglycerin (Ntg) 0.4 mg Q5M X 3 DOSES PRN SL Prn Chest Pain 06/01/17 19:30 07/01/17 19:29 Ondansetron HCl (Zofran) 4 mg Q6H PRN IVP Nausea & Vomiting 06/01/17 19:30 07/01/17 19:29 Pantoprazole (Protonix) 40 mg DAILY IV 06/02/17 09:00 07/02/17 08:59 06/04/17 09:25 Polyethylene Glycol (Miralax) 17 gm BEDTIME ORAL 06/02/17 21:00 07/02/17 20:59 06/03/17 21:05 Polyethylene Glycol (Miralax) 17 gm HSPRN PRN ORAL Constipation 06/01/17 19:30 07/01/17 19:29 Promethazine HCl 25 mg/Dextrose 56 ml @ 110 mls/hr Q6H PRN IV Refractory N/V 06/01/17 19:30 07/01/17 19:29 Promethazine HCl/ Codeine (Phenergan with Codeine) 5 ml Q4H PRN ORAL For Cough 06/01/17 19:30 07/01/17 19:29 Temazepam (Restoril) 15 mg HSPRN PRN ORAL Insomnia 06/01/17 19:30 06/08/17 19:29 06/03/17 01:43 Trazodone HCl (Desyrel) 25 mg BEDTIME ORAL 06/01/17 21:00 07/01/17 20:59 06/03/17 21:04 Rosio Prince MD Jun 04, 2017 14:48
[2017-06-04 15:49] VITALS: BP 124/73
--- NOTE | 2017-06-05 11:31 | Discharge Summary ---
Discharge Summary Discharge Summary Discharge Summary DATE OF ADMISSION: 06/01/2017 DATE OF DISCHARGE: 06/04/2017 CONSULTANTS: Dr. Rosio Summers BRIEF HOSPITAL COURSE: Patient is a 66-year-old male from [facility] presented to [place] for nausea, vomiting and diarrhea. Patient was unable to take medications. He has medical history significant for hypertension, Alzheimer's disease, and CVA. On evaluation at ED, WBC was 12, BUN 20, creatinine 1.1, amylase 58, lipase 80. Urinalysis was negative. Chest x-ray showed no acute disease. Abdominal KUB showed nonspecific bowel gas, no SBO, mild fecal impaction. He was admitted for evaluation of nausea, vomiting and diarrhea. He was placed on nothing by mouth and was given IV fluids. GI was consulted. He was given bowel regimen consisting of Colace and MiraLAX. Abdominal ultrasound with gallbladder sludge possible artifact. No gallbladder wall thickening or pericholecystic fluid seen. He had a large BM. He had desaturation at the [facility]. She was given respiratory treatments. He was placed on aspiration precaution. He was observed off antibiotics. Swallow evaluation was done. He was recommended for quality of life pured diet with nectar thick liquids. He underwent psychiatric evaluation. Patient with confusion, disorganized thought process, and mood lability. He was diagnosed with major depressive disorder with psychotic features. He was started on Remeron 15 mg daily at bedtime, Aricept 5 mg daily at bedtime, trazodone 25 mg daily at bedtime, and Ativan 1 mg IV when necessary anxiety and agitation. Symptoms resolved. She was doing better. She was eventually cleared for discharge back to [facility]. 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 DISCHARGE MEDICATIONS: Refer to Discharge Medication List. I have been assigned to dictate discharge summary on this account, and I was not involved in the patient's management. Sharmila Anglin NP Jun 05, 2017 11:31
== END 2017-06-04 17:20 | DRG 392 ==
LOC: EDBD 14:54 → EMR 16:16 → 4W 16:27 → EDBEDREQ 17:13 → 4W 06-02 19:45
DX: R11.2 Nausea with vomiting, unspecified (principal); E46 Unspecified protein-calorie malnutrition; F32.3 Major depressive disorder, single episode, severe with psychotic features; I69.354 Hemiplegia and hemiparesis following cerebral infarction affecting left non-dominant side; F31.81 Bipolar II disorder; K56.41 Fecal impaction; R19.7 Diarrhea, unspecified; R09.02 Hypoxemia; Z91.89 Other specified personal risk factors, not elsewhere classified; I10 Essential (primary) hypertension; R13.10 Dysphagia, unspecified; E86.0 Dehydration; I69.391 Dysphagia following cerebral infarction; G30.9 Alzheimer's disease, unspecified; F02.80 Dementia in other diseases classified elsewhere, unspecified severity, without behavioral disturbance, psychotic disturbance, mood disturbance, and anxiety; E78.5 Hyperlipidemia, unspecified; Z91.013 Allergy to seafood; Z91.018 Allergy to other foods
CPT/HCPCS: 36415; 71045; 74018; 76700; 80048; 80053; 80061; 81003; 82150; 82248; 82550; 82553; 83690; 83735; 84100; 84484; 85007; 85025; 85730; 87081; 93005; 97803; 99285; J2405; J8499